=== PATIENT | female | born 1945 | race Asian ===

== ENCOUNTER 2017-09-23 00:52 | Inpatient (IN) | payer MEDICARE, OTHER ==
[2017-09-23 01:25] LABS: ADD MAN DIFF? NO
[2017-09-23 01:29] LABS: BASOPHIL # 0.1 10^3/ul (0.0-0.1); BASOPHILS % 0.5 % (0.0-2.0); EOSINOPHILS # 0.3 10^3/ul (0.0-0.5); EOSINOPHILS % 3.1 % (0.0-7.0); HEMATOCRIT 36.5 % (37.0-47.0); HEMOGLOBIN 11.9 g/dl (12.0-16.0); LYMPHOCYTES # 2.4 10^3/ul (0.8-2.9); LYMPHOCYTES % 25.1 % (15.0-51.0); MEAN CORPUSCULAR HEMOGLOBIN 29.1 pg (29.0-33.0); MEAN CORPUSCULAR HGB CONC 32.6 g/dl (32.0-37.0); MEAN CORPUSCULAR VOLUME 89.2 fl (82.0-101.0); MEAN PLATELET VOLUME 10.3 fl (7.4-10.4); MONOCYTE # 0.8 10^3/ul (0.3-0.9); MONOCYTES % 8.5 % (0.0-11.0); NEUTROPHIL # 6.1 10^3/ul (1.6-7.5); NEUTROPHILS % 62.5 % (39.0-77.0); PLATELET COUNT 243 10^3/UL (140-415); RED BLOOD COUNT 4.09 10^6/ul (4.20-5.40); RED CELL DISTRIBUTION WIDTH 13.4 % (11.5-14.5)
[2017-09-23 01:29] LABS: WHITE BLOOD COUNT 9.7 10^3/ul (4.8-10.8)
[2017-09-23] MEDS: SOD CHLORIDE 0.9% 500 ML IV (01:41)
[2017-09-23 01:59] LABS: ALANINE AMINOTRANSFERASE 71 IU/L (13-69); ALBUMIN 4.3 g/dl (3.3-4.9); ALBUMIN/GLOBULIN RATIO 1.38; ALKALINE PHOSPHATASE 76 IU/L (42-121); ANION GAP 19 (8-16); ASPARTATE AMINO TRANSFERASE 45 IU/L (15-46); BILIRUBIN,INDIRECT 0.6 mg/dl (0-1.1); BILIRUBIN,TOTAL 0.6 mg/dl (0.2-1.3); BLOOD UREA NITROGEN 18 mg/dl (7-20); CALCIUM 8.9 mg/dl (8.4-10.2); CARBON DIOXIDE 24 mmol/L (21-31); CHLORIDE 110 mmol/L (97-110); CREATININE 0.87 mg/dl (0.44-1.00); GLUCOSE 118 mg/dl (70-220); POTASSIUM 3.8 mmol/L (3.5-5.1); SODIUM 149 mmol/L (135-144); TOTAL PROTEIN 7.4 g/dl (6.1-8.1)
[2017-09-23 02:52] LABS: B-TYPE NATRIURETIC PEPTIDE 1490 PG/ML (0-125)
[2017-09-23 02:54] LABS: TROPONIN-I < 0.012 ng/ml (0.00-0.12)
[2017-09-23] MEDS ORDERED: DOCUSATE SODIUM 100 MG CAP PO (03:30)
[2017-09-23] MEDS ORDERED: BISACODYL (EC) 5 MG TAB PO (03:30)
[2017-09-23] MEDS ORDERED: ONDANSETRON 4 MG INJ IV (03:30)
[2017-09-23] MEDS ORDERED: morphine 2 MG INJ IV (03:30)
[2017-09-23] MEDS ORDERED: NITROGLYCERIN (SL) 0.4 MG TAB SL (03:30)
[2017-09-23] MEDS ORDERED: ACETAMINOPHEN 325 MG TAB PO (03:30)
[2017-09-23] MEDS ORDERED: NACL 0.9% 3 ML SYG IV (03:30)
[2017-09-23] MEDS ORDERED: HYDROmorphONE 0.5 MG/0.5 ML SYG IV (06:30)
[2017-09-23] MEDS: DEXTROSE 5% 1,000 ML IV (07:39)
[2017-09-23 08:07] LABS: CREATINE KINASE 145 IU/L (23-200)
[2017-09-23 08:09] LABS: MAGNESIUM 2.2 mg/dl (1.7-2.5)
[2017-09-23 08:09] LABS: CHOLESTEROL 92 mg/dl (100-200); HDL CHOLESTEROL 46 mg/dl (33-92); LDL CHOLESTEROL,CALCULATED 33 mg/dl; TRIGLYCERIDES 63 mg/dl (0-149)
[2017-09-23 08:18] LABS: CK INDEX 0.8; TROPONIN-I 0.019 ng/ml (0.00-0.12)
[2017-09-23] MEDS: INSULIN ASPART [NOVOLOG] 3 ML PEN SC ×2 (09:00→12:44)
[2017-09-23] MEDS: ENOXAPARIN 80 MG/0.8 ML SYG SC (09:44)
[2017-09-23 11:51] LABS: ADD UMIC NO; UR ASCORBIC ACID NEGATIVE (NEGATIVE); UR BILIRUBIN (Dip) NEGATIVE (NEGATIVE); UR BLOOD (Dip) NEGATIVE (NEGATIVE); UR CLARITY CLEAR (CLEAR); UR COLOR STRAW (YELLOW); UR GLUCOSE (Dip) NEGATIVE (NEGATIVE); UR KETONES (Dip) NEGATIVE (NEGATIVE); UR LEUKOCYTE ESTERASE (Dip) NEGATIVE Leu/ul (NEGATIVE); UR NITRITE (Dip) NEGATIVE (NEGATIVE); UR TOTAL PROTEIN (Dip) NEGATIVE (NEGATIVE); UR UROBILINOGEN (Dip) NEGATIVE (NEGATIVE)
[2017-09-23 13:40] LABS: CREATINE KINASE 130 IU/L (23-200)
[2017-09-23 13:52] LABS: CK INDEX 0.8; CK-MB 1.01 ng/ml (0.0-2.4)
[2017-09-23 14:01] LABS: TROPONIN-I < 0.012 ng/ml (0.00-0.12)
[2017-09-23] MEDS: REGADENOSON 0.4 MG/5 ML SYG (14:06)
[2017-09-23] MEDS ORDERED: DEXTROSE 50% 50 ML SYRINGE IV ×2 (15:00)
[2017-09-23] MEDS ORDERED: GLUCOSE GEL 15 GRAM TUBE PO ×2 (15:00)
[2017-09-23] MEDS ORDERED: GLUCOSE GEL 15 GRAM TUBE BUCCAL (15:00)
[2017-09-23] MEDS ORDERED: GLUCAGON 1 MG INJ IM (15:00)
[2017-09-23] MEDS ORDERED: INSULIN ASPART [NOVOLOG] 3 ML PEN SC (17:05)
[2017-09-23] MEDS: Insulin NOVOLOG SS MILD Algorithm (SS with meals and bedtime) SC (17:05)
[2017-09-24] MEDS ORDERED: ACCUCHECK AT 2AM (Patients on SS coverage) XX (02:00)
[2017-09-24] MEDS ORDERED: ACCU-CHEK XX (02:00)
== END 2017-09-23 18:05 | disposition home or self-care (01) | DRG 313 ==
LOC: E/R 00:52 → MS3 02:42
DX: R07.89 Other chest pain (principal); I25.10 Atherosclerotic heart disease of native coronary artery without angina pectoris; I27.20 Pulmonary hypertension, unspecified; I48.91 Unspecified atrial fibrillation; E11.9 Type 2 diabetes mellitus without complications; I10 Essential (primary) hypertension; Z95.5 Presence of coronary angioplasty implant and graft
CPT/HCPCS: 36415; 71045; 78452; 80053; 80061; 81003; 82550; 82553; 82962; 83036; 83735; 83880; 84443; 84484; 85025; 93005; 93017; 93306; 99285-25

== ENCOUNTER 2017-11-21 14:07 | Inpatient (IN) | payer MEDICARE, OTHER ==
[2017-11-21 17:49] LABS: ADD MAN DIFF? NO
[2017-11-21] MEDS: ONDANSETRON 4 MG INJ IV ×2 (17:51→20:23)
[2017-11-21] MEDS: HYDROmorphONE 0.5 MG/0.5 ML SYG IV ×2 (17:51→19:36)
[2017-11-21 17:52] LABS: BASOPHIL # 0.1 10^3/ul (0.0-0.1); BASOPHILS % 0.5 % (0.0-2.0); EOSINOPHILS % 0.2 % (0.0-7.0); HEMATOCRIT 44.9 % (37.0-47.0); HEMOGLOBIN 14.3 g/dl (12.0-16.0); LYMPHOCYTES # 1.1 10^3/ul (0.8-2.9); LYMPHOCYTES % 7.4 % (15.0-51.0); MEAN CORPUSCULAR HEMOGLOBIN 27.8 pg (29.0-33.0); MEAN CORPUSCULAR HGB CONC 31.8 g/dl (32.0-37.0); MEAN CORPUSCULAR VOLUME 87.2 fl (82.0-101.0); MEAN PLATELET VOLUME 10.1 fl (7.4-10.4); MONOCYTE # 0.8 10^3/ul (0.3-0.9); MONOCYTES % 5.2 % (0.0-11.0); NEUTROPHIL # 13.1 10^3/ul (1.6-7.5); NEUTROPHILS % 86.3 % (39.0-77.0); PLATELET COUNT 284 10^3/UL (140-415); RED BLOOD COUNT 5.15 10^6/ul (4.20-5.40); RED CELL DISTRIBUTION WIDTH 14.3 % (11.5-14.5)
[2017-11-21 17:52] LABS: WHITE BLOOD COUNT 15.2 10^3/ul (4.8-10.8)
[2017-11-21] MEDS: SOD CHLORIDE 0.9% 500 ML IV (17:52)
[2017-11-21 18:15] LABS: ALANINE AMINOTRANSFERASE 37 IU/L (13-69); ALBUMIN 4.8 g/dl (3.3-4.9); ALBUMIN/GLOBULIN RATIO 1.14; ALKALINE PHOSPHATASE 98 IU/L (42-121); ANION GAP 20 (8-16); ASPARTATE AMINO TRANSFERASE 38 IU/L (15-46); BILIRUBIN,INDIRECT 1.2 mg/dl (0-1.1); BILIRUBIN,TOTAL 1.2 mg/dl (0.2-1.3); BLOOD UREA NITROGEN 23 mg/dl (7-20); CALCIUM 9.7 mg/dl (8.4-10.2); CARBON DIOXIDE 27 mmol/L (21-31); CHLORIDE 103 mmol/L (97-110); CREATININE 0.78 mg/dl (0.44-1.00); GLUCOSE 125 mg/dl (70-220); LIPASE 160 U/L (23-300); POTASSIUM 4.1 mmol/L (3.5-5.1); SODIUM 146 mmol/L (135-144)
[2017-11-21 18:27] LABS: TROPONIN-I < 0.012 ng/ml (0.000-0.120)
[2017-11-21 18:33] LABS: LACTIC ACID 1.8 mmol/L (0.5-2.0)
[2017-11-21] MEDS ORDERED: ACETAMINOPHEN 325 MG TAB PO (20:00)
[2017-11-21] MEDS ORDERED: morphine 2 MG INJ IV (21:30)
[2017-11-21] MEDS ORDERED: NACL 0.9% 3 ML SYG IV (21:30)
[2017-11-21] MEDS: DEXTROSE 5%-0.45% NACL 1,000 ML IV (23:06)
[2017-11-22] MEDS: HYDROmorphONE 0.5 MG/0.5 ML SYG IV ×2 (01:07→19:04)
[2017-11-22] MEDS: ONDANSETRON 4 MG INJ IV (04:24)
[2017-11-22] MEDS ORDERED: ALBUTEROL HFA 8 GM INHALER INH (05:00)
[2017-11-22 05:35] LABS: ADD MAN DIFF? NO
[2017-11-22 05:39] LABS: BASOPHILS % 0.4 % (0.0-2.0); EOSINOPHILS % 0.1 % (0.0-7.0); HEMATOCRIT 41.2 % (37.0-47.0); HEMOGLOBIN 13.1 g/dl (12.0-16.0); LYMPHOCYTES # 0.9 10^3/ul (0.8-2.9); LYMPHOCYTES % 7.7 % (15.0-51.0); MEAN CORPUSCULAR HEMOGLOBIN 27.8 pg (29.0-33.0); MEAN CORPUSCULAR HGB CONC 31.8 g/dl (32.0-37.0); MEAN CORPUSCULAR VOLUME 87.5 fl (82.0-101.0); MEAN PLATELET VOLUME 10.4 fl (7.4-10.4); MONOCYTE # 0.7 10^3/ul (0.3-0.9); MONOCYTES % 6.1 % (0.0-11.0); NEUTROPHIL # 9.7 10^3/ul (1.6-7.5); NEUTROPHILS % 85.3 % (39.0-77.0); PLATELET COUNT 250 10^3/UL (140-415); RED BLOOD COUNT 4.71 10^6/ul (4.20-5.40); RED CELL DISTRIBUTION WIDTH 14.1 % (11.5-14.5)
[2017-11-22 05:39] LABS: WHITE BLOOD COUNT 11.4 10^3/ul (4.8-10.8)
[2017-11-22 05:59] LABS: ALANINE AMINOTRANSFERASE 30 IU/L (13-69); ALBUMIN 3.8 g/dl (3.3-4.9); ALBUMIN/GLOBULIN RATIO 1.18; ALKALINE PHOSPHATASE 68 IU/L (42-121); ANION GAP 13 (8-16); ASPARTATE AMINO TRANSFERASE 25 IU/L (15-46); BLOOD UREA NITROGEN 20 mg/dl (7-20); CALCIUM 8.8 mg/dl (8.4-10.2); CARBON DIOXIDE 29 mmol/L (21-31); CHLORIDE 107 mmol/L (97-110); CHOL/HDL RATIO 1.8 RATIO; CHOLESTEROL 104 mg/dl (100-200); CREATININE 0.77 mg/dl (0.44-1.00); GLUCOSE 167 mg/dl (70-220); HDL CHOLESTEROL 56 mg/dl (33-92); LDL CHOLESTEROL,CALCULATED 36 mg/dl; MAGNESIUM 2.1 mg/dl (1.7-2.5); POTASSIUM 4.2 mmol/L (3.5-5.1); SODIUM 145 mmol/L (135-144); TRIGLYCERIDES 59 mg/dl (0-149)
[2017-11-22 06:03] LABS: B-TYPE NATRIURETIC PEPTIDE 2610 PG/ML (0-125)
[2017-11-22 06:08] LABS: HEMOGLOBIN A1C 5.8 % (0-5.9)
[2017-11-22] MEDS: METOPROLOL 5 MG INJ IV ×3 (06:13→17:47)
[2017-11-22] MEDS ORDERED: PROVENTIL HFA 6.7GM INHALER INH (07:00)
[2017-11-22] MEDS ORDERED: PANTOPRAZOLE (EC) 40 MG TAB PO (07:10)
[2017-11-22] MEDS: PANTOPRAZOLE 40 MG INJ IV (08:47)
[2017-11-22] MEDS: NEBIVOLOL 5 MG TAB PO (08:51)
[2017-11-22] MEDS: ASPIRIN 81 MG TAB PO (08:51)
[2017-11-22] MEDS: DILTIAZEM (CD) 180 MG CAP PO (08:51)
[2017-11-22] MEDS: APIXABAN 5 MG TABLET PO ×2 (08:52→21:00)
[2017-11-22] MEDS: LOSARTAN 50 MG TAB PO ×2 (08:52→21:00)
[2017-11-22] MEDS: DEXTROSE 5%-0.45% NACL 1,000 ML IV ×3 (09:47→21:02)
[2017-11-23] MEDS: METOPROLOL 5 MG INJ IV ×4 (00:46→17:49)
[2017-11-23 05:21] LABS: ADD MAN DIFF? NO
[2017-11-23 05:29] LABS: WHITE BLOOD COUNT 10.1 10^3/ul (4.8-10.8)
[2017-11-23 05:29] LABS: BASOPHIL # 0.1 10^3/ul (0.0-0.1); BASOPHILS % 0.7 % (0.0-2.0); EOSINOPHILS # 0.2 10^3/ul (0.0-0.5); EOSINOPHILS % 2.4 % (0.0-7.0); HEMATOCRIT 40.6 % (37.0-47.0); HEMOGLOBIN 12.6 g/dl (12.0-16.0); LYMPHOCYTES # 1.7 10^3/ul (0.8-2.9); LYMPHOCYTES % 16.6 % (15.0-51.0); MEAN CORPUSCULAR VOLUME 90.2 fl (82.0-101.0); MEAN PLATELET VOLUME 10.2 fl (7.4-10.4); MONOCYTES % 9.6 % (0.0-11.0); NEUTROPHIL # 7.1 10^3/ul (1.6-7.5); NEUTROPHILS % 70.2 % (39.0-77.0); PLATELET COUNT 239 10^3/UL (140-415); RED CELL DISTRIBUTION WIDTH 13.9 % (11.5-14.5)
[2017-11-23] MEDS: PANTOPRAZOLE 40 MG INJ IV (05:32)
[2017-11-23] MEDS: HYDROmorphONE 0.5 MG/0.5 ML SYG IV ×4 (05:33→21:33)
[2017-11-23] MEDS: ONDANSETRON 4 MG INJ IV (05:33)
[2017-11-23 05:38] LABS: PHOSPHORUS 3.7 mg/dl (2.5-4.9)
[2017-11-23 05:38] LABS: MAGNESIUM 2.1 mg/dl (1.7-2.5)
[2017-11-23 05:44] LABS: INR 1.22; PROTIME 15.6 Sec (11.9-14.9); PT RATIO 1.2
[2017-11-23 05:59] LABS: ALANINE AMINOTRANSFERASE 27 IU/L (13-69); ALBUMIN 3.3 g/dl (3.3-4.9); ALBUMIN/GLOBULIN RATIO 1.03; ALKALINE PHOSPHATASE 58 IU/L (42-121); ANION GAP 10 (8-16); ASPARTATE AMINO TRANSFERASE 26 IU/L (15-46); BILIRUBIN,INDIRECT 1.1 mg/dl (0-1.1); BILIRUBIN,TOTAL 1.1 mg/dl (0.2-1.3); BLOOD UREA NITROGEN 13 mg/dl (7-20); CALCIUM 8.7 mg/dl (8.4-10.2); CARBON DIOXIDE 33 mmol/L (21-31); CHLORIDE 106 mmol/L (97-110); CREATININE 0.79 mg/dl (0.44-1.00); GLUCOSE 113 mg/dl (70-220); POTASSIUM 4.3 mmol/L (3.5-5.1); SODIUM 145 mmol/L (135-144); TOTAL PROTEIN 6.5 g/dl (6.1-8.1)
[2017-11-23] MEDS: LOSARTAN 50 MG TAB PO ×2 (09:00→21:00)
[2017-11-23] MEDS: APIXABAN 5 MG TABLET PO ×2 (09:00→21:00)
[2017-11-23] MEDS: ASPIRIN 81 MG TAB PO (09:00)
[2017-11-23] MEDS: NEBIVOLOL 5 MG TAB PO (09:00)
[2017-11-23] MEDS: DILTIAZEM (CD) 180 MG CAP PO (09:00)
[2017-11-23] MEDS: DEXTROSE 5%-0.45% NACL 1,000 ML IV (10:51)
[2017-11-24] MEDS: METOPROLOL 5 MG INJ IV ×4 (00:22→17:35)
[2017-11-24] MEDS: DEXTROSE 5%-0.45% NACL 1,000 ML IV ×3 (00:25→15:23)
[2017-11-24] MEDS: HYDROmorphONE 0.5 MG/0.5 ML SYG IV ×4 (04:51→20:49)
[2017-11-24] MEDS: PANTOPRAZOLE 40 MG INJ IV (06:11)
[2017-11-24] MEDS: DIATR MEGLU/DIATRIZOATE SODIUM 120 ML BTL (08:51)
[2017-11-24] MEDS: NEBIVOLOL 5 MG TAB PO (09:00)
[2017-11-24] MEDS: APIXABAN 5 MG TABLET PO (09:00)
[2017-11-24] MEDS: ASPIRIN 81 MG TAB PO (09:00)
[2017-11-24] MEDS: DILTIAZEM (CD) 180 MG CAP PO (09:00)
[2017-11-24] MEDS: LOSARTAN 50 MG TAB PO ×2 (09:00→20:48)
[2017-11-24] MEDS: ONDANSETRON 4 MG INJ IV (10:25)
[2017-11-25] MEDS: METOPROLOL 5 MG INJ IV ×4 (00:54→17:55)
[2017-11-25] MEDS: HYDROmorphONE 0.5 MG/0.5 ML SYG IV ×5 (01:00→21:59)
[2017-11-25] MEDS: PANTOPRAZOLE 40 MG INJ IV (05:37)
[2017-11-25] MEDS: DILTIAZEM (CD) 180 MG CAP PO (08:57)
[2017-11-25] MEDS: LOSARTAN 50 MG TAB PO ×2 (08:58→20:56)
[2017-11-25] MEDS: NEBIVOLOL 5 MG TAB PO (08:58)
[2017-11-25] MEDS: ASPIRIN 81 MG TAB PO (08:58)
[2017-11-25 10:03] LABS: ADD MAN DIFF? NO
[2017-11-25 10:09] LABS: BASOPHIL # 0.1 10^3/ul (0.0-0.1); BASOPHILS % 0.6 % (0.0-2.0); EOSINOPHILS # 0.1 10^3/ul (0.0-0.5); HEMATOCRIT 39.8 % (37.0-47.0); HEMOGLOBIN 12.5 g/dl (12.0-16.0); LYMPHOCYTES # 1.2 10^3/ul (0.8-2.9); LYMPHOCYTES % 10.1 % (15.0-51.0); MEAN CORPUSCULAR HEMOGLOBIN 27.4 pg (29.0-33.0); MEAN CORPUSCULAR HGB CONC 31.4 g/dl (32.0-37.0); MEAN CORPUSCULAR VOLUME 87.1 fl (82.0-101.0); MEAN PLATELET VOLUME 10.6 fl (7.4-10.4); MONOCYTES % 8.3 % (0.0-11.0); NEUTROPHIL # 9.3 10^3/ul (1.6-7.5); NEUTROPHILS % 79.6 % (39.0-77.0); PLATELET COUNT 227 10^3/UL (140-415); RED BLOOD COUNT 4.57 10^6/ul (4.20-5.40); RED CELL DISTRIBUTION WIDTH 13.8 % (11.5-14.5)
[2017-11-25 10:09] LABS: WHITE BLOOD COUNT 11.6 10^3/ul (4.8-10.8)
[2017-11-25 10:31] LABS: MAGNESIUM 1.9 mg/dl (1.7-2.5)
[2017-11-25 10:31] LABS: PHOSPHORUS 3.1 mg/dl (2.5-4.9)
[2017-11-25 10:32] LABS: ANION GAP 13 (8-16); BLOOD UREA NITROGEN 10 mg/dl (7-20); CALCIUM 8.7 mg/dl (8.4-10.2); CARBON DIOXIDE 28 mmol/L (21-31); CHLORIDE 101 mmol/L (97-110); CREATININE 0.73 mg/dl (0.44-1.00); GLUCOSE 125 mg/dl (70-220); POTASSIUM 3.3 mmol/L (3.5-5.1); SODIUM 139 mmol/L (135-144)
[2017-11-25] MEDS: LIDOCAINE 1% (MDV) 10 ML INJ (16:02)
[2017-11-25 17:08] LABS: SYN FLD CLARITY Turbid; SYN FLD COLOR YELLOW; SYN FLD CRYSTALS CALC PYROPHOSPHATE (None seen); SYN FLD MN % 5.9 &; SYN FLD PMN % 94.1 % (0.0-25.0); SYN FLD WBC 28810 /cmm (0-150)
[2017-11-25 17:08] LABS: SYN FLD SOURCE RIGHT KNEE
[2017-11-26] MEDS: METOPROLOL 5 MG INJ IV ×2 (00:03→05:20)
[2017-11-26] MEDS: HYDROmorphONE 0.5 MG/0.5 ML SYG IV ×4 (05:20→21:30)
[2017-11-26] MEDS: PANTOPRAZOLE 40 MG INJ IV (05:20)
[2017-11-26 09:02] LABS: ADD MAN DIFF? NO
[2017-11-26] MEDS: ASPIRIN 81 MG TAB PO (09:05)
[2017-11-26] MEDS: LOSARTAN 50 MG TAB PO ×2 (09:06→21:30)
[2017-11-26] MEDS: DILTIAZEM (CD) 180 MG CAP PO (09:07)
[2017-11-26 09:10] LABS: WHITE BLOOD COUNT 9.3 10^3/ul (4.8-10.8)
[2017-11-26 09:10] LABS: BASOPHIL # 0.1 10^3/ul (0.0-0.1); BASOPHILS % 0.5 % (0.0-2.0); EOSINOPHILS # 0.3 10^3/ul (0.0-0.5); EOSINOPHILS % 3.5 % (0.0-7.0); HEMATOCRIT 37.1 % (37.0-47.0); LYMPHOCYTES # 1.3 10^3/ul (0.8-2.9); MEAN CORPUSCULAR HEMOGLOBIN 27.7 pg (29.0-33.0); MEAN CORPUSCULAR HGB CONC 32.3 g/dl (32.0-37.0); MEAN CORPUSCULAR VOLUME 85.7 fl (82.0-101.0); MEAN PLATELET VOLUME 10.7 fl (7.4-10.4); MONOCYTES % 10.8 % (0.0-11.0); NEUTROPHIL # 6.6 10^3/ul (1.6-7.5); NEUTROPHILS % 70.9 % (39.0-77.0); PLATELET COUNT 246 10^3/UL (140-415); RED BLOOD COUNT 4.33 10^6/ul (4.20-5.40); RED CELL DISTRIBUTION WIDTH 13.5 % (11.5-14.5)
[2017-11-26] MEDS: NEBIVOLOL 5 MG TAB PO (09:12)
[2017-11-26 09:25] LABS: ALANINE AMINOTRANSFERASE 29 IU/L (13-69); ALBUMIN 3.4 g/dl (3.3-4.9); ALBUMIN/GLOBULIN RATIO 0.97; ALKALINE PHOSPHATASE 101 IU/L (42-121); ANION GAP 14 (8-16); ASPARTATE AMINO TRANSFERASE 23 IU/L (15-46); BLOOD UREA NITROGEN 8 mg/dl (7-20); CALCIUM 8.8 mg/dl (8.4-10.2); CARBON DIOXIDE 28 mmol/L (21-31); CHLORIDE 101 mmol/L (97-110); CREATININE 0.72 mg/dl (0.44-1.00); GLUCOSE 117 mg/dl (70-220); POTASSIUM 3.4 mmol/L (3.5-5.1); SODIUM 140 mmol/L (135-144); TOTAL PROTEIN 6.9 g/dl (6.1-8.1); URIC ACID 2.5 mg/dl (3.1-7.9)
[2017-11-26] MEDS ORDERED: INDOMETHACIN 25 MG PO (13:00)
[2017-11-26] MEDS: ATORVASTATIN 40 MG TAB PO (21:30)
[2017-11-26] MEDS: ONDANSETRON 4 MG INJ IV (22:59)
[2017-11-27] MEDS: HYDROmorphONE 0.5 MG/0.5 ML SYG IV ×5 (01:13→20:07)
[2017-11-27] MEDS: LORAZEPAM 2 MG INJ IV (03:38)
[2017-11-27] MEDS: PANTOPRAZOLE (EC) 40 MG TAB PO (06:14)
[2017-11-27] MEDS: LOSARTAN 50 MG TAB PO ×2 (08:28→20:07)
[2017-11-27] MEDS: NEBIVOLOL 5 MG TAB PO (08:28)
[2017-11-27] MEDS: DILTIAZEM (CD) 180 MG CAP PO (08:28)
[2017-11-27] MEDS: ASPIRIN 81 MG TAB PO (08:28)
[2017-11-27] MEDS: ONDANSETRON 4 MG INJ IV (12:30)
[2017-11-27] MEDS: METOCLOPRAMIDE 10 MG INJ IV (16:57)
[2017-11-27] MEDS: ATORVASTATIN 40 MG TAB PO (20:07)
[2017-11-27] MEDS: APIXABAN 5 MG TABLET PO (20:07)
[2017-11-28] MEDS: HYDROmorphONE 0.5 MG/0.5 ML SYG IV ×5 (00:17→20:39)
[2017-11-28] MEDS: PANTOPRAZOLE (EC) 40 MG TAB PO (05:19)
[2017-11-28] MEDS: ASPIRIN 81 MG TAB PO (08:39)
[2017-11-28] MEDS: NEBIVOLOL 5 MG TAB PO (08:39)
[2017-11-28] MEDS: LOSARTAN 50 MG TAB PO ×2 (08:39→20:39)
[2017-11-28] MEDS: APIXABAN 5 MG TABLET PO ×2 (08:39→20:38)
[2017-11-28] MEDS: DILTIAZEM (CD) 180 MG CAP PO (08:39)
[2017-11-28] MEDS: ONDANSETRON 4 MG INJ IV ×2 (11:10→17:34)
[2017-11-28] MEDS: ATORVASTATIN 40 MG TAB PO (20:38)
[2017-11-29] MEDS: ONDANSETRON 4 MG INJ IV ×3 (01:05→21:51)
[2017-11-29] MEDS: HYDROmorphONE 0.5 MG/0.5 ML SYG IV ×3 (01:05→20:29)
[2017-11-29] MEDS: LORAZEPAM 2 MG INJ IV (02:16)
[2017-11-29] MEDS: PANTOPRAZOLE (EC) 40 MG TAB PO (05:34)
[2017-11-29] MEDS: LOSARTAN 50 MG TAB PO ×2 (08:58→20:24)
[2017-11-29] MEDS: ASPIRIN 81 MG TAB PO (08:58)
[2017-11-29] MEDS: APIXABAN 5 MG TABLET PO ×2 (08:58→20:23)
[2017-11-29] MEDS: DILTIAZEM (CD) 180 MG CAP PO (10:52)
[2017-11-29] MEDS: NEBIVOLOL 5 MG TAB PO (10:52)
[2017-11-29] MEDS ORDERED: DOCUSATE SODIUM 100 MG CAP PO (12:00)
[2017-11-29] MEDS: ATORVASTATIN 40 MG TAB PO (20:23)
[2017-11-30] MEDS: HYDROmorphONE 0.5 MG/0.5 ML SYG IV (01:01)
[2017-11-30] MEDS: PANTOPRAZOLE (EC) 40 MG TAB PO (06:13)
[2017-11-30] MEDS: NEBIVOLOL 5 MG TAB PO (10:01)
[2017-11-30] MEDS: ASPIRIN 81 MG TAB PO (10:01)
[2017-11-30] MEDS: APIXABAN 5 MG TABLET PO (10:01)
[2017-11-30] MEDS: DILTIAZEM (CD) 180 MG CAP PO (10:02)
[2017-11-30] MEDS: LOSARTAN 50 MG TAB PO (10:02)
== END 2017-11-30 11:47 | DRG 389 ==
LOC: PP2 19:57 → MS4 11-27 07:40 → PP2 11-29 02:35 → MS4 11-24 12:22 → E/R 14:07 → MS3 11-22 07:06
PROC: 0S9C3ZX Drainage of Right Knee Joint, Percutaneous Approach, Diagnostic (ICD-10-PCS; principal; 2017-11-25)
DX: K56.50 Intestinal adhesions [bands], unspecified as to partial versus complete obstruction (principal); I31.3 Pericardial effusion (noninflammatory); I48.2 Chronic atrial fibrillation; E11.9 Type 2 diabetes mellitus without complications; E78.5 Hyperlipidemia, unspecified; K21.9 Gastro-esophageal reflux disease without esophagitis; I25.10 Atherosclerotic heart disease of native coronary artery without angina pectoris; Z95.5 Presence of coronary angioplasty implant and graft; Z87.11 Personal history of peptic ulcer disease; Z90.710 Acquired absence of both cervix and uterus; J44.9 Chronic obstructive pulmonary disease, unspecified; E66.9 Obesity, unspecified; Z68.29 Body mass index [BMI] 29.0-29.9, adult; Z90.722 Acquired absence of ovaries, bilateral; Z90.79 Acquired absence of other genital organ(s); I11.0 Hypertensive heart disease with heart failure; I50.9 Heart failure, unspecified; I27.20 Pulmonary hypertension, unspecified; M17.9 Osteoarthritis of knee, unspecified; M11.261 Other chondrocalcinosis, right knee; D72.829 Elevated white blood cell count, unspecified; M54.5 Low back pain
CPT/HCPCS: 36415; 71045; 73721; 74018; 74176; 74250; 80048; 80053; 80061; 83036; 83605; 83690; 83735; 83880; 84100; 84443; 84484; 84560; 85025; 85610; 85730; 87070; 89060; 93005; 93308; 96374; 96375; 96376; 97162; 99285-25